=== PATIENT | female | born 1980 | race Caucasian/White ===

== ENCOUNTER 2016-04-03 00:35 | Emergency (ER) ==
[2016-04-03 00:53] VITALS: BP 118/79; TEMP 97.6; BMI 31.1
[2016-04-03] MEDS ORDERED: TORADOL IM STA (00:57)
[2016-04-03] MEDS ORDERED: DECADRON 4 MG/ML SDV IM STA (00:57)
--- NOTE | 2016-04-03 01:00 | ED.PDOC ---
[id number]: left foot pain Time Seen by Physician: 00:58 Mode of Arrival: Walk-In Information Source: Patient Nursing and Triage Documentation Reviewed and Agree: Yes Musculoskeletal Complaint Exam - Ankle/Foot Complaint/Exam Location of Injury: Reports: Left, Foot Mechanism of Injury: Reports: Trauma Symptoms Are: Reports: Still present Onset of Pain: Reports: Immediate Initial Severity: Moderate Current Severity: Moderate Location: Reports: Discrete Character: Reports: Aching, Throbbing Alleviating: Reports: None Aggravating: Reports: Movement, Weight bearing Able to Bear Weight: No Associated Signs and Symptoms: Reports: Swelling. Denies: Redness, Bruising, Fever, Weakness, Numbness, Tingling Related History: Reports: Similar episode Gout Risk Factors: Reports: None Related Surgical History: Reports: None Lower Extremity Findings: Present: Swelling. Absent: Ecchymosis, Abnormal contour, Rotation Achilles Tendon Abnormality: No Tenderness: Present: Heel Limited Range of Motion: Present: Inversion, Eversion Differential Diagnosis: Closed Fracture, Sprain, Tendonitis, Other (heal spur) Review of Systems - Review Of Systems Constitutional: Reports: No symptoms Eyes: Reports: No symptoms Ears, Nose, Mouth, Throat: Reports: No symptoms Respiratory: Reports: No symptoms Cardiac: Reports: No symptoms GI: Reports: No symptoms : Reports: No symptoms Musculoskeletal: Reports: Joint pain, Joint swelling Skin: Reports: No symptoms Neurological: Reports: No symptoms Endocrine: Reports: No symptoms Hematologic/Lymphatic: Reports: No symptoms All Other Systems: Reviewed and Negative Past Medical History - Past Medical History Previously Healthy: Yes Endocrine: Reports: None Cardiovascular: Reports: None Respiratory: Reports: Asthma Hematological: Reports: None Gastrointestinal: Reports: GERD Genitourinary: Reports: None Neuro/Psych: Reports: None Musculoskeletal: Reports: None Cancer: Reports: None Last Menstrual Period: 10 days ago Other Pertinent Past Medical History: Chronic Back Pain - Surgical History General Surgical History: Reports: Tubal ligation, Tonsillectomy, Other (lymph nodes--Lymph Node Removal Left Breast) - Family History Family History: Reports: Unknown - Social History Smoking Status: Current some day smoker, Light tobacco smoker Smoking Cessation Counseling Time: > 3 min - 10 min Hx Substance Use: No Alcohol Screening: None - Immunizations Tetanus Shot up to Date: Yes Physical Exam - Physical Exam Appearance: Ill-appearing Pain Distress: Mild Eyes: JORDANA, EOMI, Conjunctiva clear ENT: Ears normal, Nose normal, Oropharynx normal Respiratory: Airway patent, Breath sounds clear, Breath sounds equal, Respirations nonlabored Cardiovascular: RRR, Pulses normal, No rub, No murmur GI/: Soft, Nontender, No masses, Bowel sounds normal, No Organomegaly Musculoskeletal: Limited ROM, Limited strength Skin: Warm, Dry, Normal color Neurological: Sensation intact, Motor intact, Reflexes intact, Cranial nerves intact, Alert, Oriented Psychiatric: Affect appropriate, Mood appropriate Critical Care Note - Critical Care Note Total Time (mins): 0 Course - Course Orders, Labs, Meds: Orders Category Date Time Status Dexamethasone 4 mg/ml Inj [Decadron 4 mg/ml Sdv] MEDS 04/03/16 00:57 Discontinued 4 mg IM ONCE STA Ketorolac Tromethamine [Toradol] MEDS 04/03/16 00:57 Discontinued 60 mg IM ONCE STA FOOT, LEFT 3 VIEWS Stat RADS 04/03/16 00:57 Completed Medications Discontinued Medications Generic Name Dose Route Start Last Admin Trade Name Anabell PRN Reason Stop Dose Admin Dexamethasone Sodium Phosphate 4 mg 04/03/16 00:57 04/03/16 01:18 Decadron 4 Mg/Ml Sdv IM 04/03/16 00:58 4 mg ONCE STA Administration Ketorolac Tromethamine 60 mg 04/03/16 00:57 04/03/16 01:18 Toradol IM 04/03/16 00:58 60 mg ONCE STA Administration Vital Signs: Temp Pulse Resp BP Pulse Ox 04/03/16 00:44 97.6 F 85 20 118/79 98 Departure - Departure Time of Disposition: 01:45 Disposition: HOME SELF-CARE Discharge Problem: Heel spur Qualifiers: Laterality: left Qualifier Code: (M77.32) Calcaneal spur, left foot Instructions: Heel Spur (ED) Condition: Stable Pt referred to PMD for follow-up: Yes Additional Instructions: rest YAZ wrap Prescriptions: Tramadol HCl 50 mg PO BID #14 tablet Allergies/Adverse Reactions: Allergies iodine Adverse Reaction (Verified 04/03/16 00:41) Home Medications: Ambulatory Orders Ibuprofen 400 mg PO Q6H PRN 04/03/16 Multivitamin 1 cap PO DAILY 04/03/16 Tramadol HCl 50 mg PO BID #14 tablet 04/03/16 Disposition Discussed With: Patient, Family
--- NOTE | 2016-04-03 06:51 | DI ---
EXAM: LEFT FOOT, 3 VIEWS HISTORY: Left foot pain FINDINGS / IMPRESSION: Compared to 07/23/2015.There is a plantar calcaneal spur measuring 0.5 cm wh ich is a common normal variant. There is either a chronic fracture of the medial (tibial) sesamoid b one of the great toe or a bipartite nature of the bone. This is unchanged since prior study. Bone and joint structures of the foot are otherwise unremarkable. Normal bone density. No arthropathy.
== END 2016-04-03 01:51 | disposition home or self-care (01) ==
LOC: ED 00:35
DX: M77.32 Calcaneal spur, left foot (principal); F17.210 Nicotine dependence, cigarettes, uncomplicated
CPT/HCPCS: 96372; 99282

== ENCOUNTER 2016-05-19 12:10 | Emergency (ER) ==
[2016-05-19 12:17] VITALS: BP 155/79; TEMP 99.2; BMI 29.8
[2016-05-19] MEDS ORDERED: TORADOL IM STA (12:51)
--- NOTE | 2016-05-19 12:53 | ED.PDOC ---
General ED Provider: Dr. CHIVO ARNOLD Chief Complaint: Tooth Problem Stated Complaint: Fell and injured the left side of the face yesterday night, hurts to open the mouth. Time Seen by Physician: 12:51 Mode of Arrival: Walk-In Information Source: Patient Primary Care Provider: BRIJESH PATINO Nursing and Triage Documentation Reviewed and Agree: Yes EENT Complaint Exam - Dental/Oral Complaint/Exam Mechanism of Injury: Trauma Symptoms Are: Still present Timing: Constant Initial Severity: Moderate Current Severity: Moderate Character: Reports: Aching, Throbbing Aggravating: Reports: Chewing Alleviating: Reports: None Associated Signs and Symptoms: Reports: Swelling Cardiac Risk Factors: Reports: None Dental/Oral Surgical History: Reports: None Tooth Findings: Present: Percussion tenderness Cervical Lymphadenopathy Present: No Facial Swelling Present: No Uvula Midline: No Antonieta-tonsillar Fluctuence: No Trismus Present: No Scarlatinaform Rash Present: No Differential Diagnoses: Fractured Tooth, Maxillary Trauma Review of Systems - Review Of Systems Constitutional: Reports: No symptoms Eyes: Reports: No symptoms Ears, Nose, Mouth, Throat: Reports: No symptoms Respiratory: Reports: No symptoms Cardiac: Reports: No symptoms GI: Reports: No symptoms : Reports: No symptoms Musculoskeletal: Reports: No symptoms Skin: Reports: No symptoms Neurological: Reports: No symptoms Endocrine: Reports: No symptoms Hematologic/Lymphatic: Reports: No symptoms All Other Systems: Reviewed and Negative Past Medical History - Past Medical History Previously Healthy: Yes Endocrine: Reports: None Cardiovascular: Reports: None Respiratory: Reports: Asthma Hematological: Reports: None Gastrointestinal: Reports: GERD Genitourinary: Reports: None Neuro/Psych: Reports: None Musculoskeletal: Reports: None Cancer: Reports: None Last Menstrual Period: apr 26 Other Pertinent Past Medical History: Chronic Back Pain - Surgical History General Surgical History: Reports: Tubal ligation, Tonsillectomy, Other (lymph nodes--Lymph Node Removal Left Breast) - Family History Family History: Reports: Unknown - Social History Smoking Status: Current some day smoker, Heavy tobacco smoker Hx Substance Use: No Alcohol Screening: None Physical Exam - Physical Exam Appearance: Well-appearing, No pain distress, Well-nourished Eyes: JORDANA, EOMI, Conjunctiva clear ENT: Ears normal, Nose normal, Oropharynx normal Neck: Supple Respiratory: Airway patent, Breath sounds clear, Breath sounds equal, Respirations nonlabored Cardiovascular: RRR, Pulses normal, No rub, No murmur GI/: Soft, Nontender, No masses, Bowel sounds normal, No Organomegaly Musculoskeletal: Normal strength, ROM intact, No edema, No calf tenderness Skin: Warm, Dry, Normal color Neurological: Sensation intact, Motor intact, Reflexes intact, Cranial nerves intact, Alert, Oriented Psychiatric: Affect appropriate, Mood appropriate Interpretation - Radiology Interpretation Radiology Interpretation By: Radiologist Radiology Results: Negative Critical Care Note - Critical Care Note Total Time (mins): 0 Course - Course Orders, Labs, Meds: Orders Category Date Time Status URINE Stat LAB 05/19/16 12:51 Uncollected Ketorolac Tromethamine [Toradol] MEDS 05/19/16 12:51 Stat 60 mg IM ONCE STA CT MAXILLOFACIAL W/O CONTRAST Stat RADS 05/19/16 12:51 Ordered Vital Signs: Temp Pulse Resp BP Pulse Ox 05/19/16 12:10 99.2 F 83 20 155/79 H 98 Departure - Departure Time of Disposition: 14:00 Disposition: HOME SELF-CARE Discharge Problem: Toothache Instructions: Toothache (ED) Condition: Stable Pt referred to PMD for follow-up: Yes Additional Instructions: Increase hydration Tylenol prn Prescriptions: Amoxicillin 500 mg PO BID #20 tablet Tramadol HCl 50 mg PO BID #14 tablet Allergies/Adverse Reactions: Allergies iodine Adverse Reaction (Verified 05/19/16 12:17) Home Medications: Ambulatory Orders Ibuprofen 400 mg PO Q6H PRN 04/03/16 Multivitamin 1 cap PO DAILY 04/03/16 Amoxicillin 500 mg PO BID #20 tablet 05/19/16 Tramadol HCl 50 mg PO BID #14 tablet 05/19/16 Disposition Discussed With: Patient
[2016-05-19 13:17] LABS: URINE PREGNANCY INTERNAL QC INTERNAL QC VALID
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
== END 2016-05-19 14:09 | disposition home or self-care (01) ==
LOC: ED 12:10
DX: K08.89 Other specified disorders of teeth and supporting structures (principal); S09.93XA Unspecified injury of face, initial encounter; F17.210 Nicotine dependence, cigarettes, uncomplicated; W19.XXXA Unspecified fall, initial encounter
CPT/HCPCS: 81025; 96372; 99283

== ENCOUNTER 2016-06-30 14:11 | Emergency (ER) ==
[2016-06-30 14:24] VITALS: BP 126/91; TEMP 99.4; BMI 28.9
[2016-06-30 14:52] LABS: URINE PREGNANCY INTERNAL QC INTERNAL QC VALID
--- NOTE | 2016-06-30 15:13 | CT ---
EXAM: CT of the head without contrast History: Headache. Comparison: Head CT 06/29/2014 Technique: Multiplanar CT images through the head were obtained without the administration of IV co ntrast Findings: The visualized paranasal sinuses and mastoid air cells are clear in general. No acute ca lvarial abnormalities. Intracranially the ventricular and cisternal spaces are normal in size, shape and configuration for a patient of this age. No dominant mass or midline shift. No hydrocephalous. No acute intracrania l hemorrhage or abnormal extraaxial fluid collections. Impression: No acute intracranial process.
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
--- NOTE | 2016-06-30 15:26 | ED.PDOC ---
General ED Provider: Dr. CASSANDRA CHOUDHURY Chief Complaint: Fall Stated Complaint: `FALL NECK PAIN , HEAD JERRY, LEFT ORBIT CONTUSION Time Seen by Physician: 14:13 Mode of Arrival: Walk-In Information Source: Patient Exam Limitations: No limitations Primary Care Provider: JAVY PATINO Nursing and Triage Documentation Reviewed and Agree: Yes Trauma/Injury Complaint Exam - Trauma Complaint/Exam Location of Pain or Injury: Reports: Neck, Other (ORBIT PAIN LEFT SIDE ) Mechanism of Injury: Reports: Fall Symptoms Are: Still present Initial Severity: Mild Current Severity: Mild Character: Reports: Aching Aggravating: Reports: None Alleviating: Reports: None Associated Signs and Symptoms: Reports: Confusion (ORBIT LEFT). Denies: LOC, Memory loss, Lethargy, Vomiting, Bleeding, Bruising, Swelling, Extremity disuse , Painful respiration, Hoarseness, Dysphagia, Hemoptysis, Significant blood loss : No Penetrating Injury Risk Factors: Reports: None Nexus Low Risk Criteria: No evidence of intoxicat., No Altered LOC, No focal neuro deficit, No distracting injuries Glascow Coma Scale (see protocol): 15 Differential Diagnoses: Laceration, Sprain, Strain Review of Systems - Review Of Systems Constitutional: Reports: No symptoms Eyes: Reports: No symptoms Ears, Nose, Mouth, Throat: Reports: No symptoms Respiratory: Reports: No symptoms Cardiac: Reports: No symptoms GI: Reports: No symptoms : Denies: Dysuria Musculoskeletal: Reports: Neck pain Skin: Reports: No symptoms Neurological: Reports: Headache Endocrine: Reports: No symptoms Hematologic/Lymphatic: Reports: No symptoms All Other Systems: Reviewed and Negative Past Medical History - Past Medical History Previously Healthy: Yes Endocrine: Reports: None Cardiovascular: Reports: None Respiratory: Reports: Asthma Hematological: Reports: None Gastrointestinal: Reports: GERD Genitourinary: Reports: None Neuro/Psych: Reports: None Musculoskeletal: Reports: None Cancer: Reports: None Last Menstrual Period: 06/20 Other Pertinent Past Medical History: Chronic Back Pain - Surgical History General Surgical History: Reports: Tubal ligation, Tonsillectomy, Other (lymph nodes--Lymph Node Removal Left Breast) - Family History Family History: Reports: Unknown - Social History Smoking Status: Heavy tobacco smoker Hx Substance Use: Yes Alcohol Screening: Occasionally Physical Exam - Physical Exam Appearance: Well-appearing, No pain distress, Well-nourished Eyes: JORDANA, EOMI (LEFT ORBIT CONTUSED ) ENT: Ears normal, Nose normal, Oropharynx normal Respiratory: Airway patent, Breath sounds clear, Breath sounds equal, Respirations nonlabored Cardiovascular: RRR, Pulses normal, No rub, No murmur GI/: Soft, Nontender, No masses, Bowel sounds normal, No Organomegaly Musculoskeletal: Normal strength, ROM intact, No edema, No calf tenderness Skin: Warm, Dry, Normal color Neurological: Sensation intact, Motor intact, Reflexes intact, Cranial nerves intact, Alert, Oriented Psychiatric: Affect appropriate, Mood appropriate Critical Care Note - Critical Care Note Total Time (mins): 0 Course - Course Orders, Labs, Meds: Lab Review 06/30/16 14:47 Urine Test Negative Orders Category Date Time Status URINE Stat LAB 06/30/16 14:[address] CERVICAL SPINE W/O CONTRAST Stat RADS 06/30/16 14:[address] HEAD W/O CONTRAST Stat RADS 06/30/16 14:[address] LUMBAR SPINE W/O CONTRAST Stat RADS 06/30/16 14:38 Taken Vital Signs: Temp Pulse Resp BP Pulse Ox 06/30/16 14:12 99.4 F 103 H 20 126/91 H 98 Departure - Departure Time of Disposition: 15:26 Disposition: HOME SELF-CARE Discharge Problem: Contusion Contusion of left orbital tissues Qualifiers: Encounter type: initial encounter Qualifier Code: (S05.12XA) Contusion of eyeball and orbital tissues, left eye, initial encounter Headache Qualifiers: Headache type: unspecified Headache chronicity pattern: acute headache Instructions: Contusion in Adults (ED), Acute Headache (ED) Condition: Good Pt referred to PMD for follow-up: No Additional Instructions: Please call your Family Physician as soon as possible to schedule a follow-up appointment. Allergies/Adverse Reactions: Allergies iodine Adverse Reaction (Verified 05/19/16 12:17) Home Medications: Ambulatory Orders Multivitamin 1 cap PO DAILY 04/03/16 Disposition Discussed With: Patient
[2016-06-30] MEDS ORDERED: NORCO 7.5-325 PO STA (15:42)
== END 2016-06-30 15:46 | disposition home or self-care (01) ==
LOC: ED 14:11
DX: S05.12XA Contusion of eyeball and orbital tissues, left eye, initial encounter (principal); R51 Headache; M54.2 Cervicalgia; W19.XXXA Unspecified fall, initial encounter; F17.210 Nicotine dependence, cigarettes, uncomplicated
CPT/HCPCS: 81025; 99283

== ENCOUNTER 2016-08-06 18:36 | Emergency (ER) ==
[2016-08-06 18:53] VITALS: BP 154/78; TEMP 100; BMI 29.2
[2016-08-06] MEDS ORDERED: TORADOL IM STA (19:05)
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
[2016-08-06 20:47] LABS: URINE PREGNANCY INTERNAL QC INTERNAL QC VALID
== END 2016-08-06 20:56 | disposition home or self-care (01) ==
LOC: ED 18:36
DX: S09.93XA Unspecified injury of face, initial encounter (principal); S39.92XA Unspecified injury of lower back, initial encounter; Y04.2XXA Assault by strike against or bumped into by another person, initial encounter; W19.XXXA Unspecified fall, initial encounter; F17.210 Nicotine dependence, cigarettes, uncomplicated
CPT/HCPCS: 81025; 96372; 99283

== ENCOUNTER 2018-06-25 00:25 | Outpatient (CLI) ==
[2018-06-25 00:40] VITALS: BMI 26.5
== END 2018-06-25 00:29 | disposition critical access hospital (66) ==
LOC: AMBL 00:25
PROVIDERS: ATTEND Family Medicine
DX: R10.84 Generalized abdominal pain (principal)

== ENCOUNTER 2018-06-25 00:32 | Emergency (ER) ==
[2018-06-25 00:40] VITALS: BP 133/91; TEMP 97.6; BMI 26.5
[2018-06-25] MEDS ORDERED: SODIUM CHLORIDE 1,000 ML IV STA (00:41)
[2018-06-25] MEDS ORDERED: DILAUDID 1 MG/ML SYRINGE IVP PRN (00:41)
[2018-06-25] MEDS ORDERED: ZOFRAN 4 MG/2 ML IVP STA (00:42)
[2018-06-25] MEDS ORDERED: DILAUDID 1 MG/ML SYRINGE ONE (00:47)
[2018-06-25] MEDS ORDERED: PHENERGAN 25 MG/ML VIAL 12.5 MG in SODIUM CHLORIDE 50 ML IV STA (01:35)
--- NOTE | 2018-06-25 01:36 | CT ---
Exam: CT of the abdomen and pelvis without contrast History: Abdominal pain Technique: [address] of the abdomen and pelvis without intravascular contrast FINDINGS: The lung bases are clear. No significant liver abnormality. The adrenals, pancreas and s pleen are unremarkable. The stomach and hiatus are unremarkable.The gallbladder appears normal. Kid neys and proximal collecting system are unremarkable. The appendix is normal. Bowel loops demonstra te normal caliber. No inflamatory change seen in the mesentery or retroperitoneum. Vascular structu res appear normal by noncontrast CT. Pelvic genitourinary structures appear normal. Pelvic bowel loops are unremarkable. No inflammatory change in the pelvic fat. No acute abnormality of the abdominal or pelvic skeleton. Impression: 1. No inflammatory process, bowel or urinary obstruction is seen. No abnormalities of the abdomen o r pelvis.
[2018-06-25] MEDS ORDERED: PHENERGAN 25 MG/ML VIAL ONE (01:38)
--- NOTE | 2018-06-25 02:21 | ED.PDOC ---
General ED Provider: Dr. MALLORIE DONALDSON-ER Chief Complaint: Abdominal Pain Stated Complaint: im hurting Time Seen by Physician: 00:35 Mode of Arrival: Ambulance Information Source: Patient, EMT Exam Limitations: No limitations Primary Care Provider: JAVY PATINO Nursing and Triage Documentation Reviewed and Agree: Yes Does patient meet sepsis criteria?: No System Inflammatory Response Syndrome: Not Applicable Sepsis Protocol: For patient's 13 years and over: Temp is 96.8 and below OR 101 and greater Pulse >90 BPM Resp >20/minute Acutely Altered Mental Status Are patient's symptoms suggestive of a new infection, such as: -Pneumonia -Skin, Soft Tissue -Endocarditis -UTI -Bone, Joint Infection -Implantable Device -Acute Abdominal Infection -Wound Infection -Meningitis -Blood Stream Catheter Infection -Unknown GI Complaint Exam - Abdominal Pain Complaint/Exam Onset: Gradual Duration: 2 days Symptoms Are: Still present Timing: Constant Initial Severity: Mild Current Severity: Moderate Location of Pain: Diffuse Character: Reports: Dull, Aching Alleviating: Reports: Spontaneous resolution Associated Signs and Symptoms: Reports: Decreased appetite, Nausea, Vomiting Patient Rh Status: Unknown Abdominal Findings: Present: None Differential Diagnoses: Appendicitis, Constipation, Pancreatitis Quality Indicator For Non-Traumatic Chest Pain/Syncope: EKG Performed Review of Systems - Review Of Systems Constitutional: Reports: No symptoms Eyes: Reports: No symptoms Ears, Nose, Mouth, Throat: Reports: No symptoms Respiratory: Reports: No symptoms Cardiac: Reports: No symptoms GI: Reports: Abdominal pain, Nausea : Reports: No symptoms Musculoskeletal: Reports: No symptoms Skin: Reports: No symptoms Neurological: Reports: No symptoms Endocrine: Reports: No symptoms Hematologic/Lymphatic: Reports: No symptoms All Other Systems: Reviewed and Negative Past Medical History - Past Medical History Previously Healthy: Yes Endocrine: Reports: None Cardiovascular: Reports: None Respiratory: Reports: Asthma Hematological: Reports: None Gastrointestinal: Reports: GERD Genitourinary: Reports: None Neuro/Psych: Reports: None Musculoskeletal: Reports: None Cancer: Reports: None Last Menstrual Period: yesterday Other Pertinent Past Medical History: Chronic Back Pain - Surgical History General Surgical History: Reports: Tubal ligation, Tonsillectomy, Other (lymph nodes--Lymph Node Removal Left Breast) - Family History Family History: Reports: Unknown - Social History Smoking Status: Current every day smoker, Heavy tobacco smoker Hx Substance Use: No Alcohol Screening: None - Immunizations Tetanus Shot up to Date: Yes Physical Exam - Physical Exam Appearance: Well-appearing, No pain distress, Well-nourished Pain Distress: Moderate Eyes: JORDANA, EOMI, Conjunctiva clear ENT: Ears normal, Nose normal, Oropharynx normal Neck: Supple Respiratory: Airway patent, Breath sounds clear, Breath sounds equal, Respirations nonlabored Cardiovascular: RRR, Pulses normal, No rub, No murmur GI/: Soft, Nontender, No masses, Bowel sounds normal, No Organomegaly Musculoskeletal: Normal strength, ROM intact, No edema, No calf tenderness Skin: Warm Neurological: Sensation intact, Motor intact, Reflexes intact, Cranial nerves intact, Alert, Oriented Psychiatric: Affect appropriate, Mood appropriate Interpretation - Radiology Interpretation Radiology Interpretation By: Radiologist Radiology Results: Negative Exam Interpreted: CT Scan - EKG Interpretation Time of EKG #1: 02:21 Rate: Normal Rhythm: Sinus Ectopy: None [place]: NL ST Segment: Normal Interpretation: nsr Re-Evaluation - Re-Evaluation Time of Re-Evaluation: 02:21 Status: Improved Vital Signs Stable: Yes Pain Level: 1 Appearance: NAD Lungs: Clear Skin: Warm and Dry Neuro: Alert and Oriented X3 CV: RRR Critical Care Note - Critical Care Note Total Time (mins): 0 Course - Course Hematology/Chemistry: 06/25/18 00:40 06/25/18 00:40 Orders, Labs, Meds: Lab Review 06/25/18 06/25/18 06/25/18 00:40 00:40 00:40 WBC 7.07 RBC 4.15 L Hgb 11.8 L Hct 36.2 L MCV 87.2 MCH 28.4 MCHC 32.6 RDW Coeff of Dax 13.8 Plt Count 365 Immature Gran % (Auto) 0.1 Neut % (Auto) 57.1 Lymph % (Auto) 34.7 Ada % (Auto) 5.2 Eos % (Auto) 2.5 Baso % (Auto) 0.4 Immature Gran # (Auto) 0.0 Neut # (Auto) 4.0 Lymph # (Auto) 2.5 Ada # (Auto) 0.4 Eos # (Auto) 0.2 Baso # (Auto) 0.0 ESR 6 Sodium 140.1 Potassium 3.71 Chloride 106.5 Carbon Dioxide 25.9 Anion Gap 11.41 BUN 8.6 Creatinine 0.61 Estimated GFR (MDRD) 110.00 BUN/Creatinine Ratio 14.09 Glucose 99.8 Calcium 9.11 Total Bilirubin 0.17 L AST 16.9 ALT 11.9 Alkaline Phosphatase 64.4 Total Protein 6.87 Albumin 4.52 Globulin 2.35 Albumin/Globulin Ratio 1.92 Amylase 63.0 Lipase 146.0 Serum , Qual Negative Urine Color Urine Clarity Urine pH Ur Specific [place] Urine Protein Urine Glucose (UA) Urine Ketones Urine Blood Urine Nitrite Urine Bilirubin Urine Urobilinogen Ur Leukocyte Esterase Urine Microscopic WBC Ur Squamous Epith Cells Urine Bacteria Urine Mucus Urine Yeast Urine Opiates Screen Ur Oxycodone Screen Urine Methadone Screen Ur Propoxyphene Screen Ur Barbiturates Screen U Tricyclic Antidepress Ur Phencyclidine Scrn Ur Amphetamine Screen U Methamphetamines Scrn U Benzodiazepines Scrn Urine Cocaine Screen U Cannabinoids Screen 06/25/18 06/25/18 00:45 00:45 WBC RBC Hgb Hct MCV MCH MCHC RDW Coeff of Adx Plt Count Immature Gran % (Auto) Neut % (Auto) Lymph % (Auto) Ada % (Auto) Eos % (Auto) Baso % (Auto) Immature Gran # (Auto) Neut # (Auto) Lymph # (Auto) Ada # (Auto) Eos # (Auto) Baso # (Auto) ESR Sodium Potassium Chloride Carbon Dioxide Anion Gap BUN Creatinine Estimated GFR (MDRD) BUN/Creatinine Ratio Glucose Calcium Total Bilirubin AST ALT Alkaline Phosphatase Total Protein Albumin Globulin Albumin/Globulin Ratio Amylase Lipase Serum , Qual Urine Color Yellow Urine Clarity Cloudy Urine pH 5.5 Ur Specific [place] 1.025 Urine Protein Negative Urine Glucose (UA) Negative Urine Ketones Trace Urine Blood Trace-intact Urine Nitrite Positive Urine Bilirubin Negative Urine Urobilinogen 0.2 Ur Leukocyte Esterase Negative Urine Microscopic WBC 2-5 Ur Squamous Epith Cells 0-2 Urine Bacteria 2+ Urine Mucus Trace Urine Yeast 1+ Urine Opiates Screen Negative Ur Oxycodone Screen Negative Urine Methadone Screen Negative Ur Propoxyphene Screen Negative Ur Barbiturates Screen Negative U Tricyclic Antidepress Negative Ur Phencyclidine Scrn Negative Ur Amphetamine Screen Positive U Methamphetamines Scrn Positive U Benzodiazepines Scrn Negative Urine Cocaine Screen Negative U Cannabinoids Screen Positive Orders Category Date Time Status EKG-(ED ONLY) Stat CARDIO 06/25/18 00:40 Completed ED IV/MEDIPORT/POWERPORT .ONCE EMERGENCY 06/25/18 00:40 Active AMYLASE Stat LAB 06/25/18 00:40 Completed CBC W/ AUTO DIFF Stat LAB 06/25/18 00:40 Completed COMPREHENSIVE METABOLIC PANEL Stat LAB 06/25/18 00:40 Completed ESR Stat LAB 06/25/18 00:40 Completed LIPASE Stat LAB 06/25/18 00:40 Completed SERUM Stat LAB 06/25/18 00:40 Completed URINALYSIS C & S IF INDICATED Stat LAB 06/25/18 00:45 Completed URINE CULTURE Stat LAB 06/25/18 01:01 Received URINE DRUG SCREEN (RAPID FOR ED) [DRUG SCREEN, URINE, LAB 06/25/18 00:45 Completed RAPID] Stat 0.9 % Sodium Chloride [Saline Flush] MEDS 06/25/18 00:40 Ordered 1 syr IVF PRN PRN Hydromorphone HCl [Dilaudid 1 mg/ml Syringe] MEDS 06/25/18 00:41 Ordered 1 mg IVP Q2HR PRN Ondansetron HCl/Pf [Zofran 4 mg/2 ml] MEDS 06/25/18 00:42 Discontinued 4 mg IVP ONCE STA Promethazine HCl [Phenergan 25 mg/ml Vial] MEDS 06/25/18 01:38 Discontinued 25 mg .ROUTE .STK-MED ONE Promethazine HCl [Phenergan 25 mg/ml Vial] 12.5 mg MEDS 06/25/18 01:35 Discontinued 0.9 % Sodium Chloride [Sodium Chloride] 50 ml IV ONCE Sodium Chloride 0.9% [Sodium Chloride] 1,000 ml MEDS 06/25/18 00:41 Active IV 100 mls/hr CT ABDOMEN/PELVIS WO CONTRAST Stat RADS 06/25/18 00:42 Completed Medications Generic Name Dose Route Start Last Admin Trade Name Freq PRN Reason Stop Dose Admin Hydromorphone HCl 1 mg 06/25/18 00:41 06/25/18 00:50 Dilaudid 1 Mg/Ml Syringe IVP 1 mg Q2HR PRN Administration Abdominal Pain Sodium Chloride 1,000 mls @ 100 mls/hr 06/25/18 00:41 06/25/18 00:50 Sodium Chloride IV 06/25/18 10:40 100 mls/hr .Q10H STA Administration Sodium Chloride 1 syr 06/25/18 00:40 06/25/18 01:42 Saline Flush IVF 1 syr PRN PRN Administration To flush IV Discontinued Medications Generic Name Dose Route Start Last Admin Trade Name Freq PRN Reason Stop Dose Admin Promethazine HCl 12.5 mg/ 50.5 mls @ 75 mls/hr 06/25/18 01:35 06/25/18 01:42 Sodium Chloride IV 06/25/18 02:15 75 mls/hr ONCE STA Administration Ondansetron HCl 4 mg 06/25/18 00:42 06/25/18 00:50 Zofran 4 Mg/2 Ml IVP 06/25/18 00:43 4 mg ONCE STA Administration Vital Signs: Temp Pulse Resp BP Pulse Ox 06/25/18 00:32 97.6 F 98 H 22 133/91 H 100 Departure - Departure Time of Disposition: 02:24 Disposition: HOME SELF-CARE Discharge Problem: Abdominal pain UTI (urinary tract infection) Qualifiers: Urinary tract infection type: acute cystitis Hematuria presence: without hematuria Qualified Code(s): N30.00 - Acute cystitis without hematuria Instructions: Acute Abdominal Pain (ED) Condition: Good Pt referred to PMD for follow-up: Yes IPMP verified?: No Additional Instructions: bactrim ds bid x 7 days---librax q 8hrs prn pain #15---f/u with pcp---consider gb xrays Allergies/Adverse Reactions: Allergies iodine Adverse Reaction (Verified 06/25/18 00:40) Home Medications: Ambulatory Orders 1 [No Reported Medications] 06/25/18 Disposition Discussed With: Patient
== END 2018-06-25 02:30 | disposition home or self-care (01) ==
LOC: ED 00:32
DX: N30.00 Acute cystitis without hematuria (principal); R10.84 Generalized abdominal pain; R11.2 Nausea with vomiting, unspecified; F17.210 Nicotine dependence, cigarettes, uncomplicated
CPT/HCPCS: 36415; 80053; 80306; 81001; 82150; 83690; 84703; 85025; 85651; 87086; 87186; 93005; 93010; 96361; 96365; 96366; 96375; 99284

== ENCOUNTER 2018-11-16 17:28 | Emergency (ER) ==
[2018-11-16 17:36] VITALS: BP 120/79; TEMP 97.8; BMI 26.4
--- NOTE | 2018-11-16 18:40 | ED.PDOC ---
General ED Provider: Dr. MALLORIE CRAVEN Chief Complaint: Breast Pain Stated Complaint: Noted two small nodules Rt Breast recently. LMP 2 weeks ago Time Seen by Physician: 18:40 Mode of Arrival: Walk-In Information Source: Patient Primary Care Provider: JAVY PATINO Nursing and Triage Documentation Reviewed and Agree: Yes Does patient meet sepsis criteria?: No System Inflammatory Response Syndrome: Not Applicable Sepsis Protocol: For patient's 13 years and over: Temp is 96.8 and below OR 101 and greater Pulse >90 BPM Resp >20/minute Acutely Altered Mental Status Are patient's symptoms suggestive of a new infection, such as: -Pneumonia -Skin, Soft Tissue -Endocarditis -UTI -Bone, Joint Infection -Implantable Device -Acute Abdominal Infection -Wound Infection -Meningitis -Blood Stream Catheter Infection -Unknown AREA DIRECTOR Complaint Exam - Breast Complaint/Exam Onset/Duration: 2 D Symptoms Are: Still present Timing: Constant Initial Severity: Mild Current Severity: Mild Location: Reports: Right, Lateral Aggravating: Reports: None Alleviating: Reports: None Associated Signs and Symptoms: Reports: Mass (TWO SMALL NODULED PEA SIZED ( 9: 00 AND 11:00) NO FLUCTUANCE). Denies: Redness, Warmth, Nodule, Discharge, Fever , Trauma History of Radiation: No History of : No History of Piercings: No Related Surgical History: Reports: None Breast Exam: Present: Normal findings Axillary Lymphadenopathy: No Mass: Present: Regular Discharge: Present: None Breast Picture: 1 - PEA SIZED NODULE 2 - PEA SIZED NODULE Differential Diagnoses: Fibrocystic Breast Disease (dISCUSSED WITH PATIENT / SUGGEST FOLLOW UP AND MAMMOGRAM) Review of Systems - Review Of Systems Constitutional: Reports: No symptoms Eyes: Reports: No symptoms Ears, Nose, Mouth, Throat: Reports: No symptoms Respiratory: Reports: No symptoms Cardiac: Reports: No symptoms GI: Reports: No symptoms : Reports: No symptoms Musculoskeletal: Reports: No symptoms Skin: Reports: No symptoms Neurological: Reports: No symptoms Endocrine: Reports: No symptoms Hematologic/Lymphatic: Reports: No symptoms All Other Systems: Reviewed and Negative Past Medical History - Past Medical History Previously Healthy: Yes Endocrine: Reports: None Cardiovascular: Reports: None Respiratory: Reports: Asthma Hematological: Reports: None Gastrointestinal: Reports: GERD Genitourinary: Reports: None Neuro/Psych: Reports: None Musculoskeletal: Reports: None Cancer: Reports: None Last Menstrual Period: na Other Pertinent Past Medical History: Chronic Back Pain - Surgical History General Surgical History: Reports: Tubal ligation, Tonsillectomy, Other (lymph nodes--Lymph Node Removal Left Breast) - Family History Family History: Reports: Unknown - Social History Smoking Status: Current some day smoker Hx Substance Use: No Alcohol Screening: None - Immunizations Tetanus Shot up to Date: Yes Physical Exam - Physical Exam Appearance: Well-appearing, No pain distress, Well-nourished Ill-appearing: None Pain Distress: None Neck: Nonsupple Respiratory: Airway patent, Breath sounds clear, Breath sounds equal, Respirations nonlabored Cardiovascular: RRR, Pulses normal, No rub, No murmur GI/: Soft, Nontender, No masses, Bowel sounds normal, No Organomegaly Musculoskeletal: Normal strength, ROM intact, No edema, No calf tenderness Skin: Warm, Dry, Normal color Neurological: Sensation intact, Motor intact, Reflexes intact, Cranial nerves intact, Alert, Oriented Psychiatric: Affect appropriate, Mood appropriate Critical Care Note - Critical Care Note Total Time (mins): 0 Course - Course Vital Signs: Temp Pulse Resp BP Pulse Ox 11/16/18 17:30 97.8 F 78 16 120/79 100 Departure - Departure Time of Disposition: 18:30 Disposition: HOME SELF-CARE Discharge Problem: Breast nodule, Fibrocystic breast changes Instructions: Breast Self Exam for Women (ED), Fibrocystic Breast Changes (ED) Condition: Stable Pt referred to PMD for follow-up: Yes (See PCP in next month) IPMP verified?: No Additional Instructions: Explained possible change in breast glands and development of nodules See pcp in next 4 weeks dISCUSSED NEED FOR CLOSE FOLLOW UP AND SHCEDULING A MAMMOGRAM Allergies/Adverse Reactions: Allergies iodine Adverse Reaction (Verified 11/16/18 17:37) iodine Adverse Reaction (Uncoded 07/16/13 11:33) Home Medications: Ambulatory Orders 1 [No Reported Medications] 06/25/18 Disposition Discussed With: Patient (dISCUSSED NEED FOR CLOSE FOLLOW UP AND SHCEDULING A MAMMOGRAM)
== END 2018-11-16 18:52 | disposition home or self-care (01) ==
LOC: ED 17:28
DX: N64.4 Mastodynia (principal); N63.0 Unspecified lump in unspecified breast; F17.210 Nicotine dependence, cigarettes, uncomplicated
CPT/HCPCS: 99282